=== PATIENT | male | born 1940 | race Caucasian/White ===

== ENCOUNTER → 2016-11-24 | Outpatient (CLI) | payer OTHER | LOC: BHFA 11:00 | PROVIDERS: ATTEND Internal Medicine Cardiovascular Disease | DX: R00.1 Bradycardia, unspecified (principal); R53.83 Other fatigue; I45.4 Nonspecific intraventricular block ==

== ENCOUNTER → 2017-05-11 | Outpatient (CLI) | payer OTHER | LOC: BHFA 13:30 | PROVIDERS: ATTEND Internal Medicine Cardiovascular Disease | DX: I25.10 Atherosclerotic heart disease of native coronary artery without angina pectoris (principal); I45.4 Nonspecific intraventricular block; I10 Essential (primary) hypertension; E78.5 Hyperlipidemia, unspecified ==

== ENCOUNTER 2017-05-30 13:52 | Emergency (ER) | payer OTHER ==
--- NOTE | 2017-05-30 14:08 | EDPHY ---
H & P Time Seen by Provider: 05/30/17 13:58 HPI/ROS: Chief complaint: Left thumb laceration HPI: 77-year-old male was cutting sheet metal earlier today when he sustained a laceration to his left thumb. Denies any numbness or weakness. Last tetanus was about 5 6 years ago. Denies other injuries at this time. ROS: 10 point Review of Systems is negative except as noted in the HPI. Exam: General: Awake, alert, no acute distress Left hand: He has a dog ear laceration to the proximal phalanx of his left thumb. There is no tendon involvement. He has full flexion extension strength. Sensations intact medially and laterally. Capillary refills less than 2 seconds. Skin: No rash - Personal History Tetanus Vaccine Date: 2007 - Medical/Surgical History Hx Asthma: No Hx Chronic Respiratory Disease: No Hx Diabetes: No Hx Cardiac Disease: No Hx Renal Disease: No Hx Cirrhosis: No Hx Alcoholism: No Hx HIV/AIDS: No Hx Splenectomy or Spleen Trauma: No Other PMH: med hx-htn,cholesterol,chronic back pain, neuropathy. surg-rt knee, appy,,tonsilectomy,rt wrist and 5th finger - Social History Smoking Status: Never smoked Constitutional: Initial Vital Signs Temperature (C) 36.9 C 05/30/17 14:00 Heart Rate 62 05/30/17 14:00 Respiratory Rate 16 05/30/17 14:00 Blood Pressure 136/72 H 05/30/17 14:00 O2 Sat (%) 94 05/30/17 14:00 O2 Delivery Mode Room Air Allergies/Adverse Reactions: gabapentin Allergy (Mild, Verified 05/30/17 14:06) Vomiting amlodipine besylate [From Norvasc] Allergy (Verified 05/30/17 14:06) PVC"S tolmetin sodium [From Tolectin] Allergy (Verified 05/30/17 14:06) Home Medications: Medication Instructions Recorded Coreg 03/03/10 Lipitor 03/03/10 Niavast 03/03/10 PRILOSEC 06/29/10 Acyclovir [Zovirax] 800 mg PO 11/20/14 Aspirin [Ecotrin] 11/20/14 Clinoril 200 MG (RX) PRN 11/20/14 Irbesartan [Avapro 300 mg] 11/20/14 traMADol [Ultram 50 mg (*)] 11/20/14 Amitriptyline HCl 08/11/16 Vicodin 5-300 mg Tablet 08/11/16 Medical Decision Making Procedures: Procedure: Laceration repair. Verbal consent was obtained from the patient. The 1.5 cm laceration on the left thumb was anesthetized in the usual fashion. The wound was irrigated, draped and explored to its base with a gloved finger. There were no deep structures involved. No tendon injury was identified. The wound was repaired with 5, 5-0 Ethilon simple interrupted sutures. The wound repair was uncomplicated. The procedure was performed by myself. Departure - Departure Disposition: Home, Routine, Self-Care Clinical Impression: Thumb laceration Condition: Good Instructions: Care For Your Stitches (ED), Laceration (ED) Additional Instructions: Sutures need to be removed in 10 days. Return to the emergency department for increasing redness, pus from the wound, increasing pain, numbness, tingling, or any other concerns. Referrals: Edgardo Mcgee MD [Primary Care Provider] - As per Instructions
[2017-05-30 14:09] VITALS: RESP 16; TEMP 98.4
[2017-05-30 14:53] VITALS: BP 126/62; PULSE 60; O2SAT 92
== END 2017-05-30 14:40 | disposition home or self-care (01) ==
LOC: CED 13:52
PROC: 0HQGXZZ Repair Left Hand Skin, External Approach (ICD-10-PCS; principal; 2017-05-30)
DX: S61.012A Laceration without foreign body of left thumb without damage to nail, initial encounter (principal); I10 Essential (primary) hypertension; Z79.82 Long term (current) use of aspirin; W45.8XXA Other foreign body or object entering through skin, initial encounter